=== PATIENT | male | born 1945 | race Caucasian/White ===

== ENCOUNTER → 2016-11-04 | Outpatient (CLI) | payer OTHER ==
[2016-11-07 23:54] LABS: CHLAMYDIA TRACH RNA*** NOT DETECTED (NOT DETECTED); GC (NEIS GONORRHOEAE)RNA** NOT DETECTED (NOT DETECTED)
== END | disposition home or self-care (01) ==
LOC: C.LABMFLN 08:29
PROVIDERS: ATTEND Family Medicine
DX: N34.2 Other urethritis (principal)

== ENCOUNTER → 2017-02-17 | Outpatient (CLI) | payer OTHER | END | disposition home or self-care (01) | LOC: C.LABMFLN 14:57 | PROVIDERS: ATTEND Family Medicine | DX: M31.6 Other giant cell arteritis (principal) ==

== ENCOUNTER 2020-11-12 12:20 | Observation (INO) ==
--- NOTE | 2020-11-04 09:03 | Anesthesiology Consultation ---
Date of Service November 04, 2020 Assessment & Plan (1) Encounter for pre-operative examination: - COVID screening: Per assessment on 11/04: Travel screen negative, no known COVID-19 positive contacts or current COVID-19 related symptoms. Patient was personally COVID positive 06/2020 ([facility]). Symptoms at time of loss of taste/smell, fever > now resolved. Surgeon arranging preop COVID testing. Awaiting results. - PCP note (11/02/20): "Average operative risk for total knee replacement surgery.. Previous surgery he had urinary retention from anesthesia." - Medication instructions: Differing instructions per PCP notes regarding perioperative lisinopril instructions. Called patient 11/04 to clarify with him the recommendation to hold lisinopril AM DOS. Patient voiced understanding. Chart Review Chart Review: Acceptable Risk for Surgery and Patient NOT seen in Pre Admission Testing History Surgery Operation Date: 11/12/20 09:10 Proposed Procedures p Right Total Knee Arthroplasty - Caleb Moncada MD Height/Weight Height: 6 ft Weight: 102.058 kg Allergies Allergy/AdvReac Type Severity Reaction Status Date / Time No Known Allergies Allergy Verified 10/27/20 13:12 Medications Home Medications Medication Instructions Recorded Confirmed Last Taken latanoprost 0.005 % eye drops 1 drp OPL HS #1 ml 01/08/19 10/27/20 Unknown acetaminophen [Tylenol Extra 1,000 mg PO Q6H PRN 10/21/20 10/27/20 Unknown Strength] atorvastatin 20 mg PO HS 10/21/20 10/27/20 Unknown lisinopril 20 mg PO QAM 10/21/20 10/27/20 Unknown tamsulosin 0.4 mg PO QPM 10/21/20 10/27/20 Unknown Past Medical History Medical History Arthritis Benign essential hypertension BPH associated with nocturia GERD (gastroesophageal reflux disease) Hiatal hernia History of COVID-19 Dx early 06/2020 ([facility]). Symptoms at time of loss of taste/smell, fever > now resolved Obesity Pre-diabetes Past Family History Family History Mother Cancer Other Prostate cancer Past Surgical History Surgical History History of hernia repair History of prostate surgery FOR ENLARGED PROSTATE History of tooth extraction Social History Smoking Status: Never smoker Do You Dip or Chew Tobacco: No (QUIT) Hx Alcohol Use: No Hx Substance Use: No Lab Results Anesthesia Preop Results Results Anesthesia Widget: WBC 7.28 K/uL (4.8-10.8) 10/27/20 Hgb 14.6 g/dL (14.0-18.0) 10/27/20 Hct 42.6 % (42-52) 10/27/20 Plt 217 K/uL (130-400) 10/27/20 Na 139 mmol/L (136-145) 10/27/20 K 3.4 mmol/L (3.5-5.1) L 10/27/20 Cl 104 mmol/L (98-107) 10/27/20 CO2 27 mmol/L (21-32) 10/27/20 BUN 23 mg/dl (7-18) H 10/27/20 Creat 1.13 mg/dl (0.6-1.4) 10/27/20 Glucose Level 96 mg/dl (70-99) 10/27/20 PT 9.9 Seconds (9.0-12.0) 10/27/20 PTT 25.9 Seconds (21.0-31.0) 10/27/20 INR 1.0 (0.9-1.1) 10/27/20 HA1c 6.0 % (4.5-5.6) H 10/27/20 Urine Color Yellow 10/27/20 Urine Appearance Clear (Clear) 10/27/20 Urine pH 5.5 (4.5-7.5) 10/27/20 Urine Specific Datil 1.010 (1.000-1.030) 10/27/20 Urine Protein Negative (Negative) 10/27/20 Urine Glucose (UA) Negative (Negative) 10/27/20 Urine Ketones Negative (Negative) 10/27/20 Urine Blood Negative (Negative) 10/27/20 Urine Nitrite Negative (Negative) 10/27/20 Urine Bilirubin Negative (Negative) 10/27/20 Urine Urobilinogen Negative (Negative) 10/27/20 Urine Leukocyte Esterase Negative (Negative) 10/27/20 Testing Electrocardiogram Date: 10/27/20 Sinus bradycardia with sinus arrhythmia at 54 bpm. Borderline LAD. Moderate IVCD. Voltage criteria for LVH. Stress Test Date: 10/07/16 Type: exercise Negative exercise stress EKG for ischemia 97% MPHR. No stress-induced chest pain. Fair to good exercise tolerance. 7 METS.
--- NOTE | 2020-11-10 19:33 | History & Physical Report ---
Date of Service November 10, 2020 Assessment & Plan (1) Primary osteoarthritis of right knee: Treatment options discussed with the patient. He has failed conservative measures as above. He would like to proceed with surgical intervention. Risks, benefits and alternatives to surgery including but not limited to infection, DVT, pain, stiffness, need for revision surgery, damage to blood vessels, damage to nerves, PE, , were discussed with the patient and they wish to proceed. Plan for right total knee arthroplasty at [facility] on 11/12/[address] Moncada. Will plan on ASA 81mg BID x 1 mo post op. Patient would like inpatient rehab/[facility] facility placement post discharge from the hospital vs HHPT. All questions answered. He will follow up post operatively. History of Present Illness Chief Complaint: Right knee pain Primary Care Provider: Anthony Young MD 75 year old male with PMHx significant for HTN, high cholesterol, glaucoma, BPH, and GERD who presents with longstanding right knee pain. Pain interfering with his daily activities. He has failed conservative management including injections, bracing, and therapy. He has severe endstage OA. He would like to proceed with knee replacement. Patient denies headaches, sweats, fevers, chills, double vision, blurred vision, cough, sore throat, dysphagia, chest pain, sob, wheezing, n/v/d/c, numbness, tingling, fatigue, urinary symptoms, mood disorders. ROS positive for right knee pain and stiffness. Allergies Allergy/AdvReac Type Severity Reaction Status Date / Time No Known Allergies Allergy Verified 10/27/20 13:12 Home Medications Medication Instructions Recorded Confirmed Type latanoprost 0.005 % eye drops 1 drp OPL HS #1 ml 01/08/19 10/27/20 History acetaminophen [Tylenol Extra 1,000 mg PO Q6H PRN 10/21/20 10/27/20 History Strength] atorvastatin 20 mg PO HS 10/21/20 10/27/20 History lisinopril 20 mg PO QAM 10/21/20 10/27/20 History tamsulosin 0.4 mg PO QPM 10/21/20 10/27/20 History Past Med/Surg History Medical History Arthritis Benign essential hypertension BPH associated with nocturia GERD (gastroesophageal reflux disease) Hiatal hernia History of MATEO-19 Dx early 06/2020 ([facility]). Symptoms at time of loss of taste/smell, fever > now resolved Obesity Pre-diabetes Surgical History History of hernia repair History of prostate surgery FOR ENLARGED PROSTATE History of tooth extraction Family History Mother Cancer Other Prostate cancer Social History (Updated 10/21/20 @ 10:17 by Jennifer Brice RN) Smoking Status: Never smoker Second Hand Exposure: No; Hx Alcohol Use: No Hx Substance Use: No Preferred Language: Tanzanian Communication Ability: Effective Hearing Ability: Normal Fittings Tightener Required: No Beliefs That Will Affect Care: None marital status: Current Living Situation: Alone current occupational status: retired Feels Safe at Home: Yes Physical Activity Frequency: 5-6 Times per Week Physical Activity Frequency Comment: LORNE MEJIA-DOES 1000 STEPS IN 5skills Seatbelt Use: always Sunscreen Use: Yes Assistive Devices: Cane, Denture - Upper, Denture - Lower and Glasses Review of Systems All systems reviewed & are unremarkable except as noted in HPI & below Physical Exam Constitutional: well developed and well nourished; no acute distress Eyes: PERRL, conjunctivae normal, anicteric sclerae ENMT: external ear and nose normal, oropharynx normal Neck: trachea midline, no thyromegaly Respiratory: normal respiratory effort, lungs clear to auscultation Cardiovascular: RRR, no murmur, no edema Musculoskeletal: Right knee: Varus alignment. Tenderness medial joint line. Mild effusion. Crepitation with ROM. Stable to valgus and varus stress. Positive Juancarlos's. ROM is 0-130 degrees. Skin: no rashes, warm and dry Neurologic: patellar DTR's 2+ bilat, sensation intact Psychiatric: A+Ox3, euthymic affect Results & Data ([facility]) Diagnostic Findings Right knee radiographs: Tricompartmental degenerative change with periarticular osteophyte formation, medial subluxation of femur on tibia.
[~2020-11-12 12:20] MED LIST: ACETAMINOPHEN 500 MG TAB PO SCH; BUPIVACAINE 0.5 % 5 MG/1 ML PF 10ML VIAL ONE; CeleBREX 200 MG CAP PO SCH; FAMOTIDINE 20 MG TAB PO SCH; GABAPENTIN 300 MG CAP PO SCH; LR 500ML BOLUS, THEN 15ML/HR IV SCH; METOCLOPRAMIDE HCL 10 MG TABLET PO SCH; ROPIVACAINE 0.5% 5 MG/ML 30 ML VIAL ONE; ROPIVACAINE 0.5% HCL/PF 150 MG, BUPIVACAINE 0.75% MPF 20 ML, EPINEPHrine 30MG/30ML (OR ... INFIL SCH; TRANEXAMIC ACID 1,000 MG **IV Intra-op IV SCH; TRANEXAMIC ACID 1,000 MG **IV Pre-op IV SCH; ceFAZolin 2000MG 2,000 MG/15 ML SYR IV SCH; dexAMETHasone 4 MG TAB PO SCH
--- NOTE | 2020-11-12 13:05 | History & Physical Bridge Note ---
Date of Service November 12, 2020 History & Physical Bridge Note I have examined the patient, reviewed the History & Physical and in the interval since the performance of the History & Physical I have noted the following changes of clinical significance: no changes noted
[2020-11-12] MEDS ORDERED: ORTHO JOINT ANESTHETIC ONE (13:38)
[2020-11-12] MEDS ORDERED: LIDOCAINE HCL 2% 2 ML VIAL/AMP(20MG/ML) INFIL ONE (13:47)
[2020-11-12] MEDS ORDERED: fentaNYL citrate 100 MCG/2 ML VIAL ONE (13:47)
[2020-11-12] MEDS ORDERED: MIDAZOLAM HCL 1 MG/ML 2ML VIAL ONE (13:47)
[2020-11-12] MEDS ORDERED: PROPOFOL IV EMULSION 10 MG/ML 20 ML VIAL IV ONE ×3 (13:48→16:01)
[2020-11-12] MEDS ORDERED: ONDANSETRON INJ 2 MG/ML 2 ML VIAL ONE (13:48)
[2020-11-12] MEDS ORDERED: ATROPINE SULFATE 0.1 MG/ML 10ML SYR IV PRN (13:49)
[2020-11-12] MEDS ORDERED: ePHEDrine sulfate 50 MG/ML AMP IV PRN (13:49)
[2020-11-12] MEDS ORDERED: KETOROLAC 30 MG/ML VIAL IV PRN (13:49)
[2020-11-12] MEDS ORDERED: ONDANSETRON INJ 2 MG/ML 2 ML VIAL IV PRN ×2 (13:49→17:33)
[2020-11-12] MEDS ORDERED: HYDROmorphone INJ 1 MG/ML SYRINGE IV PRN (13:49)
[2020-11-12] MEDS ORDERED: DEXAMETHASONE SOD INJ 4 MG/ML VIAL ONE (14:17)
[2020-11-12] MEDS ORDERED: GLYCOPYRROLATE 0.2 MG/ML VIAL ONE (14:24)
[2020-11-12] MEDS ORDERED: ePHEDrine sulfate 50 MG/ML SYR ONE (14:30)
--- NOTE | 2020-11-12 16:21 | Operative Report ---
Post Operative Report Pre & Post Diagnosis Operation Date: 11/12/20 14:25 Pre-Op Diagnosis: Unilateral Primary Osteoarthritis, Right Knee Post-Op Diagnosis: Unilateral Primary Osteoarthritis, Right Knee I identified the patient and participated in the time-out.: Yes Procedure Operation Date: 11/12/20 14:25 Actual Procedures p Right Total Knee Arthroplasty(Right), application superficial wound VAC- Caleb Moncada MD Surgeon Caleb Moncada MD Environmental Engineering Manager Torrey MONAE Estimated Blood Loss 5 Findings Consistent with Post-Op Diagnosis Specimens Bone cuts Drains 2 Hemovac Anesthesia Type MAC Spinal Regional Complications none Disposition Accompanied Patient To Recovery: No Disposition: Recovery Room Indications 75-year-old male with progressive osteoarthritis in his right knee. Radiographs demonstrate subluxation the femur medial on the tibia and [id number] with weightbearing films in flexion. Description of Procedure Patient was taken to the operating room placed supine on the operating table and anesthetized under MAC spinal regional anesthesia. Exam under anesthesia demonstrated about 5 to 10 degrees hyperextension and full flexion with some pseudolaxity medially with a varus knee no effusion.. A pneumatic tourniquet was placed about the thigh of the right lower extremity. The right lower extremity was prepped and draped in usual fashion. The leg was elevated exsanguinated with an Esmarch bandage and the pneumatic was raised to 325 mm mercury. An anterior incision was made across the right knee. The skin was incised longitudinally subcutaneous flaps were elevated and an incision was made through the medial retinaculum extending up into the mid third of the quadriceps tendon and extended down to the medial tibial tubercle. Intra-articular findings demonstrated grade 4 osteoarthritis medial femoral condyle extension through flexion surface with a strip of exposed bone on medial femoral condyle 4 mm wide and the entire length from anterior to posterior. There was kissing lesion on the medial tibia mainly anteromedially exposed bone. Lateral compartment was preserved and the patella had grade III chondromalacia medial patellofemoral joint. The knee was exposed by excising the infrapatellar fat pad, excising the meniscal remnants and anterior cruciate ligament. Any inflamed synovial tissue was resected. The fat pad over the anterior femur was resected for placement of the component in that area. The lateral synovial bands were release. The femur was exposed. The custom femoral cutting block was pinned in position. The distal femoral cutting block was applied. The distal femoral cut was made with the oscillating saw. The size 9, 4-in-1 cutti ng block was placed. The anterior and posterior chamfer cuts were made. It was noted that the bone was significantly hard with solid cancellous bone. The knee was extended and a subperiosteal peel lateral release was performed around the patella. The patella width was measured and width was reproduced using freehand cut technique. The 35 x 9 millimeter symmetrical patella was used. 3 drill holes are made for the pegs. The tibia was exposed. A custom tibial cutting block was positioned and drill holes were made for the cutting guide. Cutting guide was placed and the proximal cut was made with the oscillating saw. All osteophytes were resected. The lamina director financial planning was used to assess ligamentous balance and the ligaments were balanced in extension and flexion. The tibia was reexposed and measured for a size G tibial component. This was externally rotated in line with the tibial tubercle and the fixation pins were drilled. The proximal tibia was fashioned with the drill and punch. The size 9 CR femoral trial was inserted. The trial MC inserts were used. The 10 mm insert gave balanced ligaments through full range of motion. The patella tracked centrally. the trials were removed. The orthomix anesthetic cocktail was injected per protocol. The knee was then copiously irrigated with pulsatile saline solution. The final components were cemented with Simplex cement. The final components were [employer] persona 9 right CR standard femoral component, G right tibia, 10 MC polyethylene tibial insert, 35 x 9 symmetrical patella.. After the cement cured with the knee in full extension the Betadine soak was used per protocol. The knee joint was copiously irrigated with pulsatile lavage saline solution. 2 drains were brought out laterally and connected to a Hemovac. The quadriceps tendon and medial retinaculum were closed with interrupted [id number] #1 Vicryl sutures. The knee was taken through a full range of motion and repair was secure. The subcutaneous tissues were closed with 2-0 Vicryl sutures and skin was closed with michelle. Marcos and Acticoat superficial wound VAC was applied and the patient tolerated the procedure well. Torrey MONAE my physician evaluation assistant, assisted in soft tissue retraction instrument management leg positioning the closure and will participate in the postoperative care of the patient. I attest to the content of the Intraoperative Record and any orders documented therein. Any exceptions are noted below.
--- NOTE | 2020-11-12 17:02 | XRay Report ---
XR knee RT 1 or 2V routine CLINICAL HISTORY: Surgical Post Op COMPARISON: None. DISCUSSION: There are postsurgical changes of a total right knee arthroplasty and patellar resurfacin g. Overlying skin michelle and surgical drains are evident. IMPRESSION: Postsurgical changes of a total right knee arthroplasty. ACT 112: Negative or not required by law. Electronically signed by: Cecilio Brown M.D. 11/12/2020 5:01 PM
[2020-11-12] MEDS ORDERED: bisacodyL 10 MG SUPP PR PRN (17:33)
[2020-11-12] MEDS ORDERED: METOCLOPRAMIDE HCL INJ 5 MG/ML 2 ML VIAL IV PRN (17:33)
[2020-11-12] MEDS ORDERED: NALOXONE HCL 0.4 MG/1 ML VIAL/CARP IV PRN (17:33)
[2020-11-12] MEDS ORDERED: MAGNESIUM HYDROXIDE SUSP 30 ML UDC PO PRN (17:33)
[2020-11-12] MEDS ORDERED: HYDROmorphone INJ 0.5 MG/0.5 ML SYR IV PRN (17:33)
[2020-11-12] MEDS ORDERED: oxyCODONE HCL IR 5 MG TAB (IMMEDIATE RELEASE) PO PRN (17:33)
--- NOTE | 2020-11-12 17:53 | Anesthesiology Progress Note ---
Date of Service November 12, 2020 Anesthesia Post Procedure Vital Signs Vital Signs: Temp Pulse Pulse Resp BP BP Pulse Ox 11/12/20 17:10 36.5 C 65 15 142/67 H 95 11/12/20 17:00 36.3 C L 67 16 134/56 L 96 11/12/20 16:50 68 15 112/62 99 11/12/20 16:40 69 18 129/55 L 97 11/12/20 16:33 36.4 C L 76 16 113/47 L 98 11/12/20 15:30 36.6 C 62 16 139/67 97 11/12/20 13:04 36.8 C 72 20 154/81 H 93 Transfer of Care Handoff Completed per policy Notes Mental Status: alert / awake / arousable and participated in evaluation Nausea / Vomiting: adequately controlled Pain: adequately controlled Airway Patency, RR, SpO2: stable & adequate BP & HR: stable & adequate Hydration State: stable & adequate Neuraxial Anesthesia: was administered and sensory block is resolving Anesthetic Complications: no major complications apparent and Pt Satisfied with anesthetic care
[2020-11-12] MEDS: SODIUM CHLORIDE 0.9% 1000ML 1,000 ML IV SCH (20:11)
[2020-11-12] MEDS: DOCUSATE SODIUM 100 MG CAP PO SCH (20:13)
[2020-11-12] MEDS: ASPIRIN 81 MG ECTAB PO SCH (20:14)
[2020-11-12] MEDS ORDERED: ATORVASTATIN 20 MG TAB PO SCH (21:00)
[2020-11-12] MEDS ORDERED: LATANOPROST 0.005% OP SOLN 2.5 ML BTL OPL SCH (21:00)
[2020-11-12] MEDS ORDERED: SENNA 8.6 MG TAB PO SCH (21:00)
[2020-11-12] MEDS ORDERED: TAMSULOSIN HCL 0.4 MG CAP PO SCH (21:00)
[2020-11-12] MEDS: ACETAMINOPHEN 500 MG TAB PO SCH (22:35)
[2020-11-12] MEDS: ceFAZolin 2000MG 2,000 MG/15 ML SYR IV SCH (22:36)
[2020-11-13] MEDS: ACETAMINOPHEN 500 MG TAB PO SCH ×2 (05:38→14:14)
[2020-11-13] MEDS: ceFAZolin 2000MG 2,000 MG/15 ML SYR IV SCH (05:38)
[2020-11-13] MEDS: SODIUM CHLORIDE 0.9% 1000ML 1,000 ML IV SCH (05:56)
[2020-11-13 06:48] LABS: Hematocrit (blood only) 36.7 % (42-52); Hemoglobin 12.4 g/dL (14.0-18.0); Mean Corpuscular Hgb Conc 33.8 g/dL (32-36); Mean Corpuscular Volume 85.9 fL (80-100); Mean Platelet Volume 11.4 fL (7.4-10.4); Platelet Count 185 K/uL (130-400); RDW Coefficient of Variation 13.1 % (11.5-14.5); RDW Standard Deviation 41.3 fL (36.4-46.3); Red Blood Count 4.27 M/uL (4.7-6.1); White Blood Count 12.34 K/uL (4.8-10.8)
--- NOTE | 2020-11-13 07:07 | Orthopedic Progress Note ---
Date of Service November 13, 2020 Assessment & Plan (1) S/P total knee arthroplasty: POD#1 right TKA -Pain management as written -PT/OT -DVT prophylaxis-SCDs, TEDs, ASA 81mg BID -AM labs-hemoglobin at 12.4 this morning from 14.6 preop. Chemistries pending -D/C planning-Plan on discharge to [facility] when authorized. Case management consult has been placed. Admission and Anticipated Discharge Date Admission Date: November 12, 2020 Subjective POD#1 right TKA. Patient doing well, minimal pain thus far. No issues overnight. Denies chest pain, sob, dizziness, chills, n/v/d. Review of Systems Review of Systems: All systems reviewed & are unremarkable except as noted in HPI & below Physical Exam Physical Exam: Dressing to right knee is c/d/i. GABRIEL functioning properly. Hemovac on suction. Toes mobile. Good dorsiflexion. No calf tenderness. Distally n/v status and sensation intact. Constitutional: well developed and well nourished; no acute distress Results & Data ([facility]) Vital Signs (Past 12 Hours) Vital Signs Temp Pulse Resp BP Pulse Ox 11/13/20 03:18 36.4 C L 58 L 16 121/68 93 11/12/20 23:45 36.5 C 52 L 17 129/68 95 11/12/20 20:46 36.3 C L 57 L 17 125/65 94 11/12/20 19:32 36.4 C L 57 L 18 118/62 94 Laboratory Results H & H 11/13/20 Range/Units 06:01 Hgb 12.4 L (14.0-18.0) g/dL Hct 36.7 L (42-52) % (1) S/P total knee arthroplasty Laterality: right Qualified Code(s): Z96.651 - Presence of right artificial knee joint
[2020-11-13 07:16] LABS: BUN Creatinine Ratio 18.3 (10-20); Calcium 8.6 mg/dl (8.5-10.1); Est GFR (African American) 52.4; Est GFR (Non-African American) 45.2; Potassium 4.1 mmol/L (3.5-5.1)
[2020-11-13] MEDS: ASPIRIN 81 MG ECTAB PO SCH (08:18)
[2020-11-13] MEDS: DOCUSATE SODIUM 100 MG CAP PO SCH (08:18)
[2020-11-13] MEDS ORDERED: lisinopril 20 MG TAB PO SCH (09:00)
[2020-11-13] MEDS ORDERED: MULTIVITAMIN TAB PO SCH (09:00)
[2020-11-13] MEDS ORDERED: SODIUM CHLORIDE 0.9% 1000ML 500 ML IV ONE (13:25)
--- NOTE | 2020-11-13 18:09 | Communication Note ---
Date of Service: November 13, 2020 Discharged within 24 hours of admission. Medical consult cancelled.
--- NOTE | 2020-11-14 09:11 | Discharge Summary ---
Date of Service November 14, 2020 Admission HPI Per Admitting Provider 75 year old male with PMHx significant for HTN, high cholesterol, glaucoma, BPH, and GERD who presents with longstanding right knee pain. Pain interfering with his daily activities. He has failed conservative management including injections, bracing, and therapy. He has severe endstage OA. He would like to proceed with knee replacement. Patient denies headaches, sweats, fevers, chills, double vision, blurred vision, cough, sore throat, dysphagia, chest pain, sob, wheezing, n/v/d/c, numbness, tingling, fatigue, urinary symptoms, mood disorders. ROS positive for right knee pain and stiffness. Admission Exam Per Admitting Provider Constitutional: well developed and well nourished; no acute distress Eyes: PERRL, conjunctivae normal, anicteric sclerae ENMT: external ear and nose normal, oropharynx normal Neck: trachea midline, no thyromegaly Respiratory: normal respiratory effort, lungs clear to auscultation Cardiovascular: RRR, no murmur, no edema Musculoskeletal: Right knee: Varus alignment. Tenderness medial joint line. Mild effusion. Crepitation with ROM. Stable to valgus and varus stress. Positive Juancarlos's. ROM is 0-130 degrees. Skin: no rashes, warm and dry Neurologic: patellar DTR's 2+ bilat, sensation intact Psychiatric: A+Ox3, euthymic affect Principal Diagnosis Right knee osteoarthritis Discharge Exam Dressing to right knee is c/d/i. GABRIEL functioning properly. Hemovac on suction. Toes mobile. Good dorsiflexion. No calf tenderness. Distally n/v status and sensation intact. Constitutional well developed and well nourished; no acute distress Discharge Data Allergies Allergy/AdvReac Type Severity Reaction Status Date / Time No Known Allergies Allergy Verified 11/12/20 12:56 Procedures Performed Operation Date: 11/12/20 14:25 Actual Procedures p Right Total Knee Arthroplasty(Right) - Caleb Moncada MD Ordered Studies 11/12/20 05:00 US - OR guided needle placemen Routine Hospital Course (1) S/P total knee arthroplasty: Patient presented for same day admission following right total knee arthroplasty on 11/12/20. He tolerated procedure well. The Patient had an uneventful hospital course. Post-operatively, his activity was progressed and well tolerated. They participated in PT with ambulation distance of 75 and 12 feet. ROM of operative knee reached 80 degrees. His hemoglobin dropped to 12.4 post operatively from 14.6 preop. His creatinine was mildly elevated at 1.5 on POD#1 likely due to dehydration and was given a bolus of IV fluids. Pain controlled on oral medications. Please refer to daily progress notes and PT notes for complete details. After exam on 11/13/20, patient was felt to be stable for discharge to [facility]. Patient will f/u in the office in about 2 weeks for further evaluation including x-rays and incision check, sooner if having any issues or concerns. POD#1 right TKA -Pain management as written -PT/OT -DVT prophylaxis-SCDs, TEDs, ASA 81mg BID -AM labs-hemoglobin at 12.4 this morning from 14.6 preop. Chemistries pending -D/C planning-Plan on discharge to [facility] when authorized. Case management consult has been placed. Lab Results 11/12/20 11/12/20 11/12/20 Range/Units 12:45 Unknown Unknown WBC (4.8-10.8) K/uL RBC (4.7-6.1) M/uL Hgb (14.0-18.0) g/dL Hct (42-52) % MCV (80-100) fL MCH (25-34) pg MCHC (32-36) g/dL RDW Std Deviation (36.4-46.3) fL RDW Coeff of Bam (11.5-14.5) % Plt Count (130-400) K/uL MPV (7.4-10.4) fL Sodium (136-145) mmol/L Potassium (3.5-5.1) mmol/L Chloride (98-107) mmol/L Carbon Dioxide (21-32) mmol/L Anion Gap (3-11) BUN (7-18) mg/dl Creatinine (0.6-1.4) mg/dl Est Cr Clr Drug Dosing ml/min Est GFR ( Amer) Est GFR (Non-Af Amer) BUN/Creatinine Ratio (10-20) Glucose (70-99) mg/dl Calcium (8.5-10.1) mg/dl COVID-19 Eval [facility] C Ab Screen (Neg) SARS-CoV-2, RNA, NAAT NEGATIVE (NEGATIVE) Blood Type A Positive Antibody Screen NEGATIVE 11/13/20 11/13/20 11/13/20 Range/Units 06:01 06:01 06:01 WBC 12.34 H (4.8-10.8) K/uL RBC 4.27 L (4.7-6.1) M/uL Hgb 12.4 L (14.0-18.0) g/dL Hct 36.7 L (42-52) % MCV 85.9 (80-100) fL MCH 29.0 (25-34) pg MCHC 33.8 (32-36) g/dL RDW Std Deviation 41.3 (36.4-46.3) fL RDW Coeff of Bam 13.1 (11.5-14.5) % Plt Count 185 (130-400) K/uL MPV 11.4 H (7.4-10.4) fL Sodium 136 (136-145) mmol/L Potassium 4.1 (3.5-5.1) mmol/L Chloride 104 (98-107) mmol/L Carbon Dioxide 23 (21-32) mmol/L Anion Gap 9.0 (3-11) BUN 27 H (7-18) mg/dl Creatinine 1.50 H (0.6-1.4) mg/dl Est Cr Clr Drug Dosing 55.0 ml/min Est GFR ( Amer) 52.4 Est GFR (Non-Af Amer) 45.2 BUN/Creatinine Ratio 18.3 (10-20) Glucose 133 H (70-99) mg/dl Calcium 8.6 (8.5-10.1) mg/dl COVID-19 Eval Order Hepatitis C Ab Screen Neg (Neg) SARS-CoV-2, RNA, NAAT (NEGATIVE) Blood Type Antibody Screen Total Time Total Time Spent Total Time Spent (In Minutes): 20 Discharge Plan Discharge Items Patient Disposition: Transfer Nursing Home Fac Reason For Visit: Unilateral Primary Osteoarthritis, Right Knee Discharge Diagnosis: Right knee osteoarthritis Activity: Per Instructions section Non-emergency contact: Surgeon Call non-emergency contact if: you have any medication questions, your pain is not controlled, your pain is concerning for you, you have a fever, your temperature is above 101, your wound has increased redness and your wound has increased drainage Follow-up/Referrals: [facility] [Outside] (Per office, to start evening of surgery.) Anthony Young MD [Primary Care Provider] - Diet: Regular Addtl Attending Provider Instructions: *RECHECK CBC AND BMP IN 2 DAYS* ACTIVITY RECOMMENDATIONS: SELF CARE INSTRUCTIONS AFTER TOTAL KNEE REPLACEMENT A. You may need to continue a physical therapy program after discharge from the hospital. There are several options available to you. Your doctor will assist you in selecting the best one for you. 1. An out-patient facility 2 to 3 times a week for therapy or home therapy. 2. Continue working on all exercises taught to you in the hospital. Your goals should be to increase bending of your knee to 90 degrees and beyond and to fully straighten your knee. B. You may progress at your own pace from walking with a walker or crutches to a cane; then to no assistive devices. C. Make walking a part of your daily routine. Be up as much as comfortable with rest periods throughout the day. Rest with leg elevation is very important. Use the ice wrap frequently for the first 3-4 weeks. D. There are no restrictions on activities. You may ride in a car, shop, participate in stone spreader operator and all social activities. E. Wear the long elastic stockings (ELY hose) 20 hours a day for 2 weeks after surgery. They can be removed several times a day for laundering and for a bath. F. You may shower, no tub baths until cleared by your doctor. SPECIAL CARE INSTRUCTIONS: VERY IMPORTANT TO READ AND REVIEW A. There are a few signs you need to watch for after you are home. Call [facility] if you notice any of the followin. Increased severe knee pain. Some pain is expected especially when you exercise. 2. Increased swelling in your leg or knee; pain or swelling of the calf muscle in either lower leg. 3. Any fluid drainage from the incision. 4. Shortness of breath or chest pain. B. Please call [facility] at if you have any concerns or questions about your operation or recovery. The doctor or his nurse will return your call promptly. C. You must take antibiotics before dental work, bladder, bowel or other s urgery. Your doctor will provide you with a permanent care to carry describing this precaution. IMPORTANT: * REMEMBER TO TAKE ASPIRIN, 81 MG, TWICE DAILY FOR 4 WEEKS UNLESS OTHERWISE DIRECTED. THIS IS YOUR BLOOD THINNER. * HIGH RISK PATIENTS MAY BE PRESCRIBED A STRONGER BLOOD THINNER. THIS WILL BE PROVIDED AT DISCHARGE. * CALL IF INCREASED PAIN, REDNESS, DRAINAGE OR FEVER GREATER THAT 101. * WEAR ELY HOSE 20 HOURS PER DAY FOR 2 WEEKS. This is a large suction dressing covering your incision. This will help pull any excess drainage from the wound and allow your incision to heal properly. You may shower with this if you can keep the unit outside of the shower. If any bleeding or leakage is noted please call your doctor's office. This will remain on your incision for 7 days and then should be removed. This can be done yourself or by the home nursing staff if applicable. The entire unit is disposable once removed. Once removed, keep incision clean and dry. If redness or drainage is noted, please call your surgeon. IF INCISION IS LEAKING THROUGH DRESSING, CALL THE OFFICE . FOLLOW UP VISIT: If appointment is not already scheduled: Please call [facility] to make a follow-up appointment for 2 weeks after your surgery at . Pending Studies at Discharge: No Stand-Alone Forms: My [facility] Skilled Items Patient informed of condition?: Yes DNR: No Discharge Level of Care: Skilled Communicable Disease: No Discharge Prognosis: Stable Lines: None Urinary Catheter: No Medications and DC Order Prescriptions: New acetaminophen 500 mg Tablet 1,000 mg PO Q8 Qty: 60 RF: 0 aspirin 81 mg Tablet,Delayed Release (Dr/Ec) 81 mg PO BID Qty: 60 RF: 0 oxycodone 5 mg Tablet 5 mg PO Q4H MDD 6 PRN (Reason: pain) Qty: 30 RF: 0 Continued latanoprost 0.005 % drops 1 drp OPL HS Qty: 1 RF: 0 atorvastatin 20 mg tablet 20 mg PO HS RF: 0 tamsulosin [Flomax] 0.4 mg capsule 0.4 mg PO QPM RF: 0 lisinopril 20 mg Tablet 20 mg PO QAM RF: 0 Discontinued acetaminophen [Tylenol Extra Strength] 500 mg Capsule 1,000 mg PO Q6H PRN (Reason: Pain) RF: 0 Discharge Orders: Discharge Order (Routine); Ordered 11/13/20 Ordered By: Sidney Ontiveros Admission Data Admit Date/Time: 11/12/20 16:39 Attending Provider: Calbe Moncada Admit Provider: Caleb Moncada Primary Care Provider: Anthony Young Other Providers: Mikel Tobias Other Interventions: Discharge Summary Assessment (RN) Last Done: 11/13/20 14:20
== END 2020-11-13 16:14 ==
LOC: ASU 12:20 → 3N 12:20